=== PATIENT | female | born 1930 | race Caucasian/White ===

== ENCOUNTER 2017-01-30 16:09 | Inpatient (IN) | payer MEDICARE, MEDICAID ==
[~2017-01-30] VITALS: Ht 160 cm; Wt 55.8 kg
[2017-01-30] MEDS ORDERED: DONE5TAB7 PO (16:33)
[2017-01-30] MEDS ORDERED: DOCU250C14 PO (16:33)
[2017-01-30] MEDS ORDERED: PRAV20TA PO (16:33)
[2017-01-30] MEDS ORDERED: METO-302 PO (16:33)
[2017-01-30] MEDS ORDERED: VOLTAREN GEL 1% TD (16:33)
[2017-01-30] MEDS ORDERED: CHOL200074 PO (16:33)
[2017-01-30] MEDS ORDERED: ASPI81TA31 PO (16:33)
[2017-01-30] MEDS ORDERED: ACET-2154 PO (16:33)
[2017-01-30] MEDS ORDERED: AMLO5TAB4 PO (16:33)
[2017-01-30] MEDS ORDERED: MELA3TAB PO (16:33)
[2017-01-30] MEDS ORDERED: METAMUCIL PO (16:33)
[2017-01-30] MEDS ORDERED: DEXT15DR6 EACHEYE (16:33)
[2017-01-30 16:53] LABS: CARBON DIOXIDE 33 mmol/L (21-32); CHLORIDE 110 mmol/L (98-107); GLUCOSE 103 mg/dL (74-106); POTASSIUM 3.8 mmol/L (3.5-5.1); UREA NITROGEN, BLOOD 17 mg/dL (7-18)
[2017-01-30 16:54] LABS: BASOPHILS % (AUTO) 0.5 % (0.0-2.0); EOSINOPHILS # (AUTO) 0.1 K/uL (0.0-0.7); EOSINOPHILS % (AUTO) 1.8 % (0.0-7.0); HEMATOCRIT 43.8 % (37-47); HEMOGLOBIN 14.3 G/DL (12.0-16.0); LYMPHOCYTES # (AUTO) 1.2 K/UL (0.8-4.8); LYMPHOCYTES % (AUTO) 21.1 % (20.5-51.5); MEAN CORPUSCULAR HEMOGLOBIN 28.4 UUG (27.0-31.0); MEAN CORPUSCULAR HGB CONC 33 g/dL (32.0-37.0); MEAN CORPUSCULAR VOLUME 86.8 FL (81.0-99.0); MONOCYTES # (AUTO) 0.8 K/UL (0.1-1.30); MONOCYTES % (AUTO) 13.5 % (0.0-11.0); NEUTROPHILS # (AUTO) 3.8 K/UL (1.8-8.9); NEUTROPHILS % (AUTO) 63.1 % (38.5-71.5); PLATELET COUNT (AUTO) 214 K/UL (150-450); RED BLOOD CELL COUNT(AUTO) 5.04 MIL/UL (4.2-5.4); WHITE BLOOD COUNT (AUTO) 5.9 K/UL (4.0-11.2)
[2017-01-30 16:59] LABS: ALANINE AMINOTRANSFERASE 22 U/L (14-59); ALKALINE PHOSPHATASE 95 U/L (50-136); ASPARTATE AMINOTRANSFERASE 21 U/L (15-37); BILIRUBIN,DIRECT 0.1 mg/dL (0.0-0.2); BILIRUBIN,TOTAL 0.1 mg/dL (0.2-1.0); TOTAL PROTEIN, SERUM 5.9 g/dL (6.4-8.2)
[2017-01-30 17:00] LABS: ACETAMINOPHEN < 2.0 ug/mL (10-30)
[2017-01-30 17:03] LABS: ETHANOL < 3 MG/DL (0-0); THYROID STIMULATING HORMONE 4.288 mIU/mL (0.358-3.740)
[2017-01-30 17:25] LABS: *BILIRUBIN,URIN NEGATIVE (NEGATIVE); *BLOOD, URINE 2+ (NEGATIVE); *COLOR,URINE YELLOW (YELLOW); *KETONES,URINE NEGATIVE (NEGATIVE); *PROTEIN,URINE NEGATIVE (NEGATIVE); LEUKOCYTE ESTERASE ,URINE 1+ (NEGATIVE); NITRITE, URINE POSITIVE (NEGATIVE); UGLUCOSE NEGATIVE (NEGATIVE)
[2017-01-30 17:41] LABS: *CLARITY,URINE TURBID (CLEAR)
[2017-01-30 17:43] LABS: BACTERIA,URINE MANY /HPF (NONE SEEN); MUCUS,URINE MODERATE /LPF (0-FEW); SQUAMOUS EPITHELIAL CELL,UR MANY /HPF (NONE SEEN); URINE AMORPHOUS PHOSPHATES MODERATE /HPF
[2017-01-30] MEDS ORDERED: CIPROFLOXACIN HCL 250 MG TABLET PO ONE (18:00)
[2017-01-30 18:03] LABS: *AMPHETAMINE, URINE NEGATIVE (NEGATIVE); *BARBITURATE, URINE NEGATIVE (NEGATIVE); *CANNABINOID, URINE NEGATIVE (NEGATIVE); *COCCAINE, URINE NEGATIVE (NEGATIVE); *OPIATE, URINE NEGATIVE (NEGATIVE); *PHENCYCLIDINE SCREEN,URINE NEGATIVE (NEGATIVE)
[2017-01-30] MEDS ORDERED: CIPROFLOXACIN HCL 250 MG TABLET ONE (18:10)
--- NOTE | 2017-01-30 18:11 | NUR ---
Pt. admitted to [facility], under care of Dr. Diop Belongs List completed
--- NOTE | 2017-01-30 18:50 | NUR ---
PT RECEIVED FROM ER AT 1810. PT IS CALM, COOPERATIVE, DELAYED RESPONDS, WITHDRAWN, ANSWERED SOME QUESTIONS, BUT REFUSED TO SIGN PAPERS. ACCORDING TO THE HOLD, PT BECAME DEPRESSED, ISOLATIVE, REFUSED TO GET OUT OF THE BED, REFUSED TO EAT OR DO ADLS. PT STATED THAT SHE IS NOT DEPRESSED, SHE JUST DOES NOT LIKE BEING AROUND PEOPLE OR DOES NOT LIKE THE FOOD. PT IS ORIENTED TO SELF ONLY, DOES NOT KNOW WHERE SHE LIVES NORMALLY, FORGETFUL AND DISORIENTED. PT WAS COOPERATIVE WITH ADMISSION PROCESS. PT'S NIECE WAS NOTIFIED. DR. HOLLIS WAS NOTIFIED. REPORT ENDORSED TO THE UPCOMING SHIFT.
[2017-01-30 20:12] VITALS: BP 138/83
[2017-01-30] MEDS ORDERED: MAG HYDROX/AL HYDROX/SIMETH 30 ML LIQUID UDC PO PRN (20:15)
[2017-01-30] MEDS ORDERED: ZOLPIDEM 5 MG TABLET PO PRN (20:15)
[2017-01-30] MEDS ORDERED: QUETIAPINE FUMARATE 25 MG TABLET PO PRN (20:15)
[2017-01-30] MEDS ORDERED: PRAVASTATIN SODIUM 20 MG PO SCH (21:00)
[2017-01-30] MEDS: SULFAMETH/TRIMETH 800/160 MG TABLET PO SCH (21:00)
[2017-01-30] MEDS: DOCUSATE SODIUM 250 MG CAPSULE PO SCH (21:01)
[2017-01-30] MEDS: ATORVASTATIN 10 MG TABLET PO SCH (21:01)
[2017-01-30 23:30] VITALS: BP 138/83
[2017-01-31 06:32] LABS: BASOPHILS % (AUTO) 0.6 % (0.0-2.0); EOSINOPHILS # (AUTO) 0.1 K/uL (0.0-0.7); EOSINOPHILS % (AUTO) 2.1 % (0.0-7.0); HEMATOCRIT 45.3 % (37-47); HEMOGLOBIN 15.2 G/DL (12.0-16.0); LYMPHOCYTES # (AUTO) 1.3 K/UL (0.8-4.8); LYMPHOCYTES % (AUTO) 19.7 % (20.5-51.5); MEAN CORPUSCULAR HEMOGLOBIN 29.2 UUG (27.0-31.0); MEAN CORPUSCULAR HGB CONC 34 g/dL (32.0-37.0); MEAN CORPUSCULAR VOLUME 87.1 FL (81.0-99.0); MONOCYTES # (AUTO) 0.7 K/UL (0.1-1.30); MONOCYTES % (AUTO) 10.3 % (0.0-11.0); NEUTROPHILS # (AUTO) 4.7 K/UL (1.8-8.9); NEUTROPHILS % (AUTO) 67.3 % (38.5-71.5); PLATELET COUNT (AUTO) 227 K/UL (150-450); WHITE BLOOD COUNT (AUTO) 6.8 K/UL (4.0-11.2)
--- NOTE | 2017-01-31 06:48 | NUR ---
Patient slept for approx. 8hrs through the night. she is A/O x1. medication compliant at this time.
[2017-01-31 07:08] LABS: ALANINE AMINOTRANSFERASE 18 U/L (14-59); ALKALINE PHOSPHATASE 96 U/L (50-136); ASPARTATE AMINOTRANSFERASE 18 U/L (15-37); BILIRUBIN,TOTAL 0.3 mg/dL (0.2-1.0); CARBON DIOXIDE 30 mmol/L (21-32); CHLORIDE 107 mmol/L (98-107); CHOLESTEROL 162 mg/dL (<200); GLUCOSE 86 mg/dL (74-106); HDL CHOLESTEROL 57 mg/dL (40-60); MAGNESIUM 1.9 mg/dL (1.8-2.4); PHOSPHOROUS 2.7 mg/dL (2.5-4.9); POTASSIUM 3.7 mmol/L (3.5-5.1); TOTAL PROTEIN, SERUM 6.1 g/dL (6.4-8.2); TRIGLYCERIDES 69 MG/DL (30-150); UREA NITROGEN, BLOOD 12 mg/dL (7-18)
[2017-01-31 07:30] VITALS: BP 135/50
[2017-01-31] MEDS: AMLODIPINE 5 MG TABLET PO SCH (08:47)
[2017-01-31] MEDS: CHOLECALCIFEROL 1,000 UNIT TABLET PO SCH (08:48)
[2017-01-31] MEDS: ASPIRIN 81 MG TAB.CHEW PO SCH (08:48)
[2017-01-31] MEDS: SULFAMETH/TRIMETH 800/160 MG TABLET PO SCH ×2 (08:48→20:00)
[2017-01-31] MEDS ORDERED: METOPROLOL SUCCINATE XL 25 MG TAB.SR.24H PO SCH (09:00)
[2017-01-31] MEDS ORDERED: POLYVINYL ALCOHOL OPHT DROPS 15 ML BOTTLE EACHEYE PRN (10:15)
[2017-01-31 16:52] VITALS: BP 109/68
[2017-01-31] MEDS: DOCUSATE SODIUM 250 MG CAPSULE PO SCH (20:00)
[2017-01-31] MEDS: ATORVASTATIN 10 MG TABLET PO SCH (20:00)
[2017-01-31 20:23] VITALS: BP 121/74
[2017-01-31] MEDS ORDERED: MIRTAZAPINE 15 MG TABLET ONE (21:08)
[2017-01-31] MEDS: MIRTAZAPINE 15 MG TABLET PO SCH (22:54)
--- NOTE | 2017-01-31 22:54 | NUR ---
PHARMACY NOTE: SCHEDULED 2099 REMERON 7.5mg ADMINISTERED LATE DUE TO MD GIVING THE ORDER AFTER AMBIEN WAS ALREADY ADMINISTERED. REMERON WAS GIVEN LATE IN ORDER TO AVOID OVER-SEDATION. ADMINISTERED AT 2254.
[2017-02-01 07:48] VITALS: BP 131/82
[2017-02-01] MEDS: SULFAMETH/TRIMETH 800/160 MG TABLET PO SCH ×2 (10:02→20:14)
[2017-02-01] MEDS: AMLODIPINE 5 MG TABLET PO SCH (10:03)
[2017-02-01] MEDS: ASPIRIN 81 MG TAB.CHEW PO SCH (10:04)
[2017-02-01] MEDS: CHOLECALCIFEROL 1,000 UNIT TABLET PO SCH (10:04)
[2017-02-01 15:21] VITALS: BP 115/72
[2017-02-01 20:01] VITALS: BP 110/71
[2017-02-01] MEDS: DOCUSATE SODIUM 250 MG CAPSULE PO SCH (20:13)
[2017-02-01] MEDS: ATORVASTATIN 10 MG TABLET PO SCH (20:14)
[2017-02-01] MEDS: MIRTAZAPINE 15 MG TABLET PO SCH (20:14)
[2017-02-02 07:30] VITALS: BP 129/68
[2017-02-02] MEDS: CHOLECALCIFEROL 1,000 UNIT TABLET PO SCH (08:41)
[2017-02-02] MEDS: SULFAMETH/TRIMETH 800/160 MG TABLET PO SCH ×2 (08:41→20:12)
[2017-02-02] MEDS: AMLODIPINE 5 MG TABLET PO SCH (08:41)
[2017-02-02] MEDS: ASPIRIN 81 MG TAB.CHEW PO SCH (08:41)
--- NOTE | 2017-02-02 10:42 | NUR ---
Initial discharge instructions: Pt resides at [facility] [[id number], [place],;[phone]].Spoke with Jose Luis at the facility who stated they will accept the pt back.Called pt's niece,Niyah [phone] and left a voicemail requesting call back.ANDRAE will speak with pt,denia,and MD regarding appropriate discharge plans.SW will form a safe and proper discharge.
[2017-02-02 16:57] VITALS: BP 109/77
[2017-02-02] MEDS: ATORVASTATIN 10 MG TABLET PO SCH (20:11)
[2017-02-02] MEDS: DOCUSATE SODIUM 250 MG CAPSULE PO SCH (20:11)
[2017-02-02] MEDS: MIRTAZAPINE 15 MG TABLET PO SCH (20:12)
[2017-02-02 20:37] VITALS: BP 114/66
[2017-02-03 07:30] VITALS: BP 118/77
[2017-02-03] MEDS: SULFAMETH/TRIMETH 800/160 MG TABLET PO SCH ×2 (08:17→20:35)
[2017-02-03] MEDS: CHOLECALCIFEROL 1,000 UNIT TABLET PO SCH (08:17)
[2017-02-03] MEDS: ASPIRIN 81 MG TAB.CHEW PO SCH (08:17)
[2017-02-03] MEDS: AMLODIPINE 5 MG TABLET PO SCH (08:18)
[2017-02-03 15:08] VITALS: BP 90/58
[2017-02-03 20:00] VITALS: BP 115/61
[2017-02-03] MEDS: ATORVASTATIN 10 MG TABLET PO SCH (20:35)
[2017-02-03] MEDS: DOCUSATE SODIUM 250 MG CAPSULE PO SCH (20:35)
[2017-02-03] MEDS: ACETAMINOPHEN 325 MG TABLET PO PRN (20:35)
[2017-02-03] MEDS: MIRTAZAPINE 15 MG TABLET PO SCH (20:35)
--- NOTE | 2017-02-03 21:00 | NUR ---
Transferred from MHU via wheelchair. Slow to respond verbally, no signs of distress, vital signs WNL.
[2017-02-04 06:02] VITALS: BP 108/69
--- NOTE | 2017-02-04 06:30 | NUR ---
Fairly rested, slept 5 hrs throughout shift. No acute resp distress, 1:1 sitter in room for patient's safety.
--- NOTE | 2017-02-04 07:15 | NUR ---
RECEIVED REPORT FROM SOIL SCIENCE PROFESSOR, PATIENT IN BED AWAKE, NO EVIDENCE OF DISTRESS NOTED, BED IN LOW POSITION, SIDE RAILS UP X2. 1:1 SITTER AT BEDSIDE.
[2017-02-04 08:03] VITALS: BP 119/72
[2017-02-04] MEDS: AMLODIPINE 5 MG TABLET PO SCH (09:16)
[2017-02-04] MEDS: ASPIRIN 81 MG TAB.CHEW PO SCH (09:16)
[2017-02-04] MEDS: CHOLECALCIFEROL 1,000 UNIT TABLET PO SCH (09:16)
[2017-02-04] MEDS: VENLAFAXINE XR 37.5 MG CAP.SR.24H PO SCH (09:16)
[2017-02-04] MEDS: SULFAMETH/TRIMETH 800/160 MG TABLET PO SCH ×2 (09:17→20:18)
[2017-02-04 11:53] VITALS: BP 115/78
[2017-02-04 15:56] VITALS: BP 116/73
--- NOTE | 2017-02-04 18:00 | NUR ---
Patient's diet was changed based on family report that she eats a regular diet despite not having teeth. Orders from Dr. ENRIQUE obtained to change diet consistency.
--- NOTE | 2017-02-04 18:16 | NUR ---
patient was transported to MHU.
[2017-02-04 20:05] VITALS: BP 112/70
[2017-02-04] MEDS: DOCUSATE SODIUM 250 MG CAPSULE PO SCH (20:18)
[2017-02-04] MEDS: MIRTAZAPINE 15 MG TABLET PO SCH (20:18)
[2017-02-04] MEDS: ATORVASTATIN 10 MG TABLET PO SCH (20:18)
[2017-02-05 07:30] VITALS: BP 121/85
[2017-02-05] MEDS: CHOLECALCIFEROL 1,000 UNIT TABLET PO SCH (09:12)
[2017-02-05] MEDS: SULFAMETH/TRIMETH 800/160 MG TABLET PO SCH ×2 (09:12→20:11)
[2017-02-05] MEDS: VENLAFAXINE XR 37.5 MG CAP.SR.24H PO SCH (09:12)
[2017-02-05] MEDS: ASPIRIN 81 MG TAB.CHEW PO SCH (09:12)
[2017-02-05] MEDS: AMLODIPINE 5 MG TABLET PO SCH (09:13)
[2017-02-05 16:00] VITALS: BP 120/73
[2017-02-05 20:11] VITALS: BP 126/75
[2017-02-05] MEDS: ATORVASTATIN 10 MG TABLET PO SCH (20:11)
[2017-02-05] MEDS: MIRTAZAPINE 15 MG TABLET PO SCH (20:11)
[2017-02-05] MEDS: DOCUSATE SODIUM 250 MG CAPSULE PO SCH (20:11)
[2017-02-05] MEDS ORDERED: Z GUARD REMEDY PASTE 57 GM TUBE TOP PRN (21:15)
--- NOTE | 2017-02-06 06:40 | NUR ---
gps: remain calm and cooperative with meds and care. slept 8 hrs through the nuiight.continue plan of care.
[2017-02-06 07:30] VITALS: BP 110/68
[2017-02-06] MEDS ORDERED: VENLAFAXINE XR 37.5 MG CAP.SR.24H PO SCH (09:00)
[2017-02-06] MEDS: VENLAFAXINE XR 75 MG CAP.SR.24H PO SCH (10:41)
[2017-02-06] MEDS: CHOLECALCIFEROL 1,000 UNIT TABLET PO SCH (10:42)
[2017-02-06] MEDS: AMLODIPINE 5 MG TABLET PO SCH (10:42)
[2017-02-06] MEDS: ASPIRIN 81 MG TAB.CHEW PO SCH (10:42)
[2017-02-06] MEDS: Z GUARD REMEDY PASTE 57 GM TUBE TOP SCH ×2 (10:50→21:36)
[2017-02-06 19:39] VITALS: BP 115/72
[2017-02-06] MEDS: DOCUSATE SODIUM 250 MG CAPSULE PO SCH (21:00)
[2017-02-06] MEDS: ATORVASTATIN 10 MG TABLET PO SCH (21:00)
[2017-02-06] MEDS: MIRTAZAPINE 15 MG TABLET PO SCH (21:35)
[2017-02-07 07:30] VITALS: BP 107/69
[2017-02-07] MEDS: AMLODIPINE 5 MG TABLET PO SCH (09:00)
[2017-02-07] MEDS: ASPIRIN 81 MG TAB.CHEW PO SCH (09:23)
[2017-02-07] MEDS: VENLAFAXINE XR 75 MG CAP.SR.24H PO SCH (09:23)
[2017-02-07] MEDS: CHOLECALCIFEROL 1,000 UNIT TABLET PO SCH (09:23)
[2017-02-07] MEDS: Z GUARD REMEDY PASTE 57 GM TUBE TOP SCH ×2 (09:31→20:43)
--- NOTE | 2017-02-07 12:01 | NUR ---
BRIEF NUTRITION NOTE: RN ASKED RD TO SPEAK WITH PT D/T PT REFUSING MEALS. SPOKE WITH PT REGARDING APPETITE AND FOOD PREFERENCES. PT STATED THAT SHE NORMALLY DOESN'T EAT A LOT OF FOOD AND DOESN'T NORMALLY EAT LUNCH AT HOME D/T NOT BEING HUNGRY AT THAT TIME OF DAY. OBTAINED PT'S FOOD PREFERENCES AND COMMUNICATED THEM WITH THE DIET OFFICE TO ENCOURAGE PO INTAKE. OFFERED [employer] WITH MEALS AND PT STATED THAT SHE WOULD TRY THEM WITH LUNCH/DINNER, D/W RN. WILL F/U WITH PT SCHEDULED AND MAKE RECOMMENDATIONS NEEDED. Addendum: 02/07/17 at [address] Amended: Links added.
[2017-02-07 15:00] VITALS: BP 130/79
[2017-02-07] MEDS: ATORVASTATIN 10 MG TABLET PO SCH (20:07)
[2017-02-07] MEDS: DOCUSATE SODIUM 250 MG CAPSULE PO SCH (20:07)
[2017-02-07] MEDS: MIRTAZAPINE 15 MG TABLET PO SCH (20:08)
[2017-02-07 20:19] VITALS: BP 130/78
[2017-02-08 07:30] VITALS: BP 122/75
[2017-02-08] MEDS: AMLODIPINE 5 MG TABLET PO SCH (08:44)
[2017-02-08] MEDS: VENLAFAXINE XR 75 MG CAP.SR.24H PO SCH (08:44)
[2017-02-08] MEDS: CHOLECALCIFEROL 1,000 UNIT TABLET PO SCH (08:44)
[2017-02-08] MEDS: ASPIRIN 81 MG TAB.CHEW PO SCH (08:44)
[2017-02-08] MEDS: Z GUARD REMEDY PASTE 57 GM TUBE TOP SCH ×2 (08:45→22:03)
[2017-02-08 15:18] VITALS: BP 115/75
[2017-02-08 20:07] VITALS: BP 130/70
[2017-02-08] MEDS: ATORVASTATIN 10 MG TABLET PO SCH (21:00)
[2017-02-08] MEDS: DOCUSATE SODIUM 250 MG CAPSULE PO SCH (21:00)
[2017-02-08] MEDS: MIRTAZAPINE 15 MG TABLET PO SCH (21:33)
--- NOTE | 2017-02-08 22:22 | NUR ---
Patient refused Lipitor and Docusate Sodium QHS but was able to take Remeron QHS. Multiple redirection were given, however, patient refused. Last BM was 02/05/17. Abdomen noted soft non-tender nondistended. Active bowel sounds noted in all 4 quadrants. Pt. denies pain or discomfort at this time. We will offered MOM PO PRN for constipation.
[2017-02-09] MEDS: MAGNESIUM HYDROXIDE 30 ML LIQUID UDC PO PRN (06:01)
--- NOTE | 2017-02-09 06:53 | NUR ---
MOM 30ml PO PRN for constipation was given at approx 0600. we will monitor BM
[2017-02-09 07:30] VITALS: BP 114/72
[2017-02-09] MEDS: VENLAFAXINE XR 75 MG CAP.SR.24H PO SCH (08:30)
[2017-02-09] MEDS: ASPIRIN 81 MG TAB.CHEW PO SCH (08:30)
[2017-02-09] MEDS: AMLODIPINE 5 MG TABLET PO SCH (08:31)
[2017-02-09] MEDS: CHOLECALCIFEROL 1,000 UNIT TABLET PO SCH (08:31)
[2017-02-09] MEDS: Z GUARD REMEDY PASTE 57 GM TUBE TOP SCH ×2 (08:31→20:52)
[2017-02-09 15:41] VITALS: BP 114/73
[2017-02-09] MEDS: DOCUSATE SODIUM 250 MG CAPSULE PO SCH (20:51)
[2017-02-09] MEDS: ATORVASTATIN 10 MG TABLET PO SCH (20:51)
[2017-02-09] MEDS: MIRTAZAPINE 15 MG TABLET PO SCH (20:52)
--- NOTE | 2017-02-09 22:00 | NUR ---
Pt REFUSED ALL HS MEDICATIONS DESPITE EXTENSIVE PROMPTING AND ENCOURAGEMENT. EDUCATION PROVIDED ON RISKS AND BENEFITS OF MEDICATIONS, Pt VERBALIZED UNDERSTANDING.
[2017-02-10] MEDS: ACETAMINOPHEN 325 MG TABLET PO PRN (04:17)
--- NOTE | 2017-02-10 04:40 | NUR ---
Pt AWOKE ST 0330 C/O INDIGESTION. MAALOX 30ml ADMINISTERED WITH GOOD EFFECT. Pt LATER C/O HEADACHE, TYLENOL 650mg ADMINISTERED WITH GOOD EFFECT.
[2017-02-10] MEDS: MAGNESIUM HYDROXIDE 30 ML LIQUID UDC PO PRN (05:45)
--- NOTE | 2017-02-10 05:58 | NUR ---
Pt AWOKE AGAIN AT 0540 AND STATED SHE FELT CONSTIPATED. ACCORDING TO THE INTAKE AND OUTPUT CHARTING, Pt HAS NOT HAD A BM SINCE 02/05. IF NO EFFECT FROM THE MOM ADMINISTRATION, WILL ENDORSE TO DAY SHIFT RN TO NOTIFY .
[2017-02-10 07:37] VITALS: BP 127/73
[2017-02-10] MEDS: VENLAFAXINE XR 75 MG CAP.SR.24H PO SCH (08:00)
[2017-02-10] MEDS: CHOLECALCIFEROL 1,000 UNIT TABLET PO SCH (08:00)
[2017-02-10] MEDS: AMLODIPINE 5 MG TABLET PO SCH (08:01)
[2017-02-10] MEDS: Z GUARD REMEDY PASTE 57 GM TUBE TOP SCH ×2 (08:01→20:32)
[2017-02-10] MEDS: ASPIRIN 81 MG TAB.CHEW PO SCH (08:01)
[2017-02-10] MEDS ORDERED: BISACODYL 10 MG SUPP.RECT RC ONE (10:30)
[2017-02-10 16:20] VITALS: BP 130/90
[2017-02-10 19:56] VITALS: BP 106/64
[2017-02-10] MEDS: ATORVASTATIN 10 MG TABLET PO SCH (20:29)
[2017-02-10] MEDS: MIRTAZAPINE 15 MG TABLET PO SCH (20:29)
[2017-02-11] MEDS: ACETAMINOPHEN 325 MG TABLET PO PRN (01:58)
--- NOTE | 2017-02-11 06:25 | NUR ---
Patient presented with emesis x 2 and abdominal discomfort. according to nurse's charting, patient has not had a BM since 02/05/17. MOM 30ml PO PRN has been given for last 2 days with no results. V/S B/P 142/93; pulse 89; Oral temp 98.2F; O2 sat 95%. Dr Isidro was notify and new order obtained to administer Zofran 4mg PO PRN for N/V and senokot 2tabs PO QHS for constipation. We will continue to monitor.
[2017-02-11] MEDS: ONDANSETRON HCL 4 MG TABLET PO PRN (06:28)
[2017-02-11] MEDS ORDERED: ONDANSETRON HCL 4 MG TABLET ONE (06:40)
[2017-02-11 07:30] VITALS: BP 123/97
--- NOTE | 2017-02-11 07:34 | NUR ---
Reassess Zofran 4mg PO PRN for N/V. Patient stated that she feels "much better". we will continue to monitor.
[2017-02-11] MEDS: ASPIRIN 81 MG TAB.CHEW PO SCH (08:03)
[2017-02-11] MEDS: Z GUARD REMEDY PASTE 57 GM TUBE TOP SCH ×2 (08:03→21:15)
[2017-02-11] MEDS: VENLAFAXINE XR 37.5 MG CAP.SR.24H PO SCH (08:03)
[2017-02-11] MEDS: CHOLECALCIFEROL 1,000 UNIT TABLET PO SCH (08:03)
[2017-02-11] MEDS: AMLODIPINE 5 MG TABLET PO SCH (08:03)
[2017-02-11] MEDS ORDERED: VENLAFAXINE XR 75 MG CAP.SR.24H PO SCH (09:00)
[2017-02-11 16:00] VITALS: BP 105/53
--- NOTE | 2017-02-11 17:00 | NUR ---
DR. HOLLIS MADE HIS ROUNDS AND CLEAR PATIENT TO GO BACK TO [facility]. 1715 DR[address] GRIMM CALLED AND NOTIFIED THAT PATIENT WAS CLEARED BY PSYCHIATRIST TO GO BACK TO THE FACILITY SHE LIVE BUT MD WANT PATIENT TO STAY OVERNIGHT AND HE WILL COME TOMORROW TO SEE PATIENT AND TO CHECK LAB RESULT HE ORDERED.
[2017-02-11 17:32] LABS: CARBON DIOXIDE 31 mmol/L (21-32); CHLORIDE 104 mmol/L (98-107); CREATININE 1.1 mg/dL (0.6-1.3); GLUCOSE 106 mg/dL (74-106); POTASSIUM 4.5 mmol/L (3.5-5.1); UREA NITROGEN, BLOOD 23 mg/dL (7-18)
[2017-02-11 20:00] VITALS: BP 105/53
[2017-02-11] MEDS: MIRTAZAPINE 15 MG TABLET PO SCH (20:34)
[2017-02-11] MEDS: ATORVASTATIN 10 MG TABLET PO SCH (20:36)
[2017-02-11] MEDS ORDERED: SENNOSIDES 1 TABLET PO SCH (21:00)
[2017-02-11] MEDS ORDERED: BISACODYL 10 MG SUPP.RECT RC PRN (21:00)
--- NOTE | 2017-02-11 21:40 | NUR ---
PATIENT RECEIVED IN BED AWAKE. PLEASANT UPON APPROACH.PATIENT REMAINS CALM AND COOPERATIVE. PATIENT COMPLAINT WITH MEDICATION. NO AGGRESSIVE OR COMBATIVE BEHAVIOR NOTED, WILL CONTINUE TO MONITOR AND REDIRECT. PATIENT DENIES PAIN AT THIS TIME, WILL CONTINUE TO MONITOR. BED IN LOWEST POSITION, BED LOCKED AND BED ALARM ON WHILE IN BED. PATIENT DENIES SI, WILL CONTINUE TO MONITOR.
[2017-02-12] MEDS: ONDANSETRON HCL 4 MG TABLET PO PRN (00:37)
[2017-02-12 07:30] VITALS: BP 123/79
[2017-02-12] MEDS: ASPIRIN 81 MG TAB.CHEW PO SCH (09:00)
[2017-02-12] MEDS: AMLODIPINE 5 MG TABLET PO SCH (09:00)
[2017-02-12] MEDS: CHOLECALCIFEROL 1,000 UNIT TABLET PO SCH (09:00)
--- NOTE | 2017-02-12 10:45 | NUR ---
0730 RECEIVED PATIENT IN BED STILL SLEEPING BUT RESPOND VERBALLY WHEN NAME IS CALEED . NO S/S RESPIRATORY DISTRESS 1000 PATIENT AWAKE ASSISTED USING THE COMMODE VOIDING FREELY AND COLLECTED URINE SPECIMEN FO URINALYSIS AND SENT TO LAB. OFFERED PATIENT HER BREAKFAST AND HER AM MEDICATIONS, PATIENT WANNTS TO SLEEP MORE AND REQUESTED TO TAKE HER MEDICATIONS AFTER SHE EAT.
[2017-02-12] MEDS: Z GUARD REMEDY PASTE 57 GM TUBE TOP SCH (10:58)
[2017-02-12 10:59] LABS: *BILIRUBIN,URIN NEGATIVE (NEGATIVE); *BLOOD, URINE 3+ (NEGATIVE); *CLARITY,URINE CLEAR (CLEAR); *COLOR,URINE YELLOW (YELLOW); *KETONES,URINE NEGATIVE (NEGATIVE); *PROTEIN,URINE NEGATIVE (NEGATIVE); *UROBILINOGEN,URINE 0.2 E.U./dl (NORMAL); LEUKOCYTE ESTERASE ,URINE NEGATIVE (NEGATIVE); NITRITE, URINE NEGATIVE (NEGATIVE); UGLUCOSE NEGATIVE (NEGATIVE)
[2017-02-12 11:03] LABS: BACTERIA,URINE FEW /HPF (NONE SEEN); RBC,URINE 20-50 /HPF (0-3); SQUAMOUS EPITHELIAL CELL,UR FEW /HPF (NONE SEEN)
[2017-02-12] MEDS: VENLAFAXINE XR 37.5 MG CAP.SR.24H PO SCH (11:12)
--- NOTE | 2017-02-12 14:00 | NUR ---
DC Note: Patient will be discharged to [facility] [[address] [place] [address]; ] via ambulance at 3:00 pm. Spoke with Jose Luis at the facility who stated they would accept the patient today. Patient's Alana holt [phone] is aware and agreeable with discharge plans. Patient is aware and agreeable with discharge plans. Patient will follow-up with (Psychiatrist) and (Sfdc Developer) at the facility.
[2017-02-12 16:00] VITALS: BP 134/86
--- NOTE | 2017-02-12 17:45 | NUR ---
1400 cALLED REPORT TO FACILITY, [facility] SPOKE ROSALIO DALLAS, REPORT GIVEN REGARDING PATIENT WHO WILL BE ADMITTED TO THEIR FACILITY, SKIP HOIST OPERATOR VERBALIZED UNDERSTANDING. 1745 PATIENT PICKED UP BY AMBULANCE AND TRANSPORT PATIENT TO [facility] PATIENT ALERT AND OX2, DENIES SI/HI. NO A/V HALLUCINATIONS NOTED.
== END 2017-02-12 17:45 | DRG 885 ==
LOC: ER 16:10 → GPS 17:55 → GPSOV 02-03 19:52 → GPS 02-04 18:56
PROVIDERS: ADMIT Psychiatry & Neurology Psychiatry; ATTEND Internal Medicine
DX: F33.9 Major depressive disorder, recurrent, unspecified (principal); F02.81 Dementia in other diseases classified elsewhere, unspecified severity, with behavioral disturbance; E43 Unspecified severe protein-calorie malnutrition; I11.0 Hypertensive heart disease with heart failure; E87.0 Hyperosmolality and hypernatremia; I50.9 Heart failure, unspecified; N39.0 Urinary tract infection, site not specified; G30.9 Alzheimer's disease, unspecified; R64 Cachexia; F23 Brief psychotic disorder; F39 Unspecified mood [affective] disorder; E03.9 Hypothyroidism, unspecified; E55.9 Vitamin D deficiency, unspecified; E78.5 Hyperlipidemia, unspecified; F17.210 Nicotine dependence, cigarettes, uncomplicated; M19.90 Unspecified osteoarthritis, unspecified site; Z86.73 Personal history of transient ischemic attack (TIA), and cerebral infarction without residual deficits; I25.10 Atherosclerotic heart disease of native coronary artery without angina pectoris; Z68.21 Body mass index [BMI] 21.0-21.9, adult; Z79.899 Other long term (current) drug therapy
CPT/HCPCS: 36415; 71010; 80307; 83735; 84100; 84443; 85025; 85730; 93005; 97116; 97530; A4663; G0480; G0480-TC; Q0162